=== PATIENT | female | born 2000 | race Caucasian/White ===

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

== ENCOUNTER 2021-05-25 22:57 | Outpatient (CLI) | payer OTHER ==
[~2021-05-25] VITALS: Ht 157.5 cm; Wt 57.2 kg
[2021-05-25 23:18] VITALS: BP 121/67
[2021-05-26 00:18] LABS: APPEARANCE, URINE CLEAR (CLEAR); BACTERIA, URINE AUTO NEGATIVE (NEGATIVE); BILIRUBIN, URINE AUTO NEGATIVE (NEGATIVE); BLOOD, URINE BLOOD NEGATIVE (NEGATIVE); COLOR, URINE YELLOW (YELLOW); GLUCOSE, URINE (UA) AUTO NEGATIVE (NEGATIVE); KETONE, URINE AUTO 1+ mg/dL (NEGATIVE); LEUKOCYTE ESTERASE, URINE AUTO NEGATIVE (NEGATIVE); MUCUS, URINE SMALL (NEGATIVE); NITRITE, URINE AUTO NEGATIVE (NEGATIVE); PROTEIN, URINE AUTO NEGATIVE (NEGATIVE); RBC, URINE AUTO 0 /HPF (0-3); SPECIFIC GRAVITY URINE AUTO 1.009 (1.002-1.035); SQUAMOUS EPITHELIAL CELL UR AU 0 /HPF (0-6); WBC, URINE AUTO 1 /HPF (0-3)
[2021-05-26] MEDS ORDERED: LACTATED RINGER'S 1000 ML IV ONE (00:45)
[2021-05-26] MEDS ORDERED: LR 1,000 ML IV SCH (00:45)
[2021-05-26] MEDS ORDERED: METHYLERGONOVINE MALEATE 0.2 MG/ML VIAL (J2210) IM PRN (00:45)
[2021-05-26 00:48] VITALS: BP 116/61
[2021-05-26] MEDS ORDERED: PRENTAB9 PO (00:59)
[2021-05-26 01:10] LABS: HEMATOCRIT 35.4 % (36.0-47.0); HEMOGLOBIN 11.2 g/dl (12.0-15.5); MEAN CORPUSCULAR HEMOGLOBIN 26.2 pg (27.0-33.0); MEAN CORPUSCULAR HGB CONC 31.6 g/dl (32.0-36.5); MEAN CORPUSCULAR VOLUME 82.9 fl (80.0-96.0); PLATELET COUNT, AUTOMATED 240 10^3/uL (150-450); RED BLOOD COUNT 4.27 10^6/uL (4.00-5.40); WHITE BLOOD COUNT 10.6 10^3/uL (4.0-10.0)
[2021-05-26] MEDS ORDERED: ceFAZolin SOD 2 GM in IV 1 EA IV ONE (02:00)
--- NOTE | 2021-05-26 02:02 | IPNPDOC ---
Text Note Date of Service Item Value Date Time Urine Color YELLOW 05/25/212349 Urine Appearance CLEAR 05/25/212349 Urine pH 7.0 UNITS 05/25/212349 Urine Specific [place] 1.009 05/25/212349 Urine Ketones (Auto) 1+ mg/dL H 05/25/212349 Urine Glucose (Auto)(UA) NEGATIVE mg/dL 05/25/212349 Urine Protein NEGATIVE mg/dL 05/25/212349 Urine Blood NEGATIVE 05/25/212349 Urine Nitrite NEGATIVE 05/25/212349 Urine Bilirubin NEGATIVE 05/25/212349 Urine Urobilinogen 2.0 mg/dL H 05/25/212349 Urine Leukocyte Esterase (Auto) NEGATIVE 05/25/212349 Urine WBC (Auto) 1 /HPF 05/25/212349 Urine RBC (Auto) 0 /HPF 05/25/212349 Urine Hyaline Casts (Auto) 0 /LPF 05/25/212349 Urine Bacteria (Auto) NEGATIVE 05/25/212349 Urine Squamous Epithelial Cells 0 /HPF 05/25/212349 Urine Mucus (Auto) SMALL 05/25/212349 The patient was seen on 05/26/21. NOTE 05/25/2021 20 yo LMP 09/22/2020 EDC 21 BY EARLY US 9.1 WEEKS SEEN IN TRIAGE HISTORY OF CONTRACTIONS Q 2-3 MINUTES NO VAGINAL BLEEDING NO DISCHARGE . PATIENT AT 35.0 WEEKS PAST HISTORY 02/25/2020 SOCIAL INDUCTION MALE .7LBS 14 OZ . RISK FACTORS SHORT INTERVAL PP DEPRESSION EXAMINATION APPEARS DISTRESSED WITH CONTRACTIONS CATAGORY 1 STRIP NO DECELERATIONS MODERATE VARIBILITY . Q2-3 MINUTES 40 SECONDS . CONSENTED VAGINAL EXAMINATION CERVIX POSTERIOR SOFT 2-3 CM BULGING MEMBRANES NO SHOW NO VAGINAL DISCHARGE PLAN OBSERVATION STATUS IV FLUIDS BOLUS ADMISSION BLOOD WORK GBS STATUS UNKNOWN ANTIBIOTIC PROPHYLAXIS PLANNED REASSESSMENT RE DILATATION IF PROGRESSED ADMIT IF NO CHANGE DISCHARGE WITH PRECAUTIONS . PATIENT EXPRESSED UNDERSTANDING OF PLAN OF CARE 30 MINUTE DISCUSSION . VS,Fishbone, I+O VS, Fishbone, I+O Item Value Date Time White Blood Count 10.6 10^3/uL H 05/26/21 0025 Red Blood Count 4.27 10^6/uL 05/26/21 0025 Hemoglobin 11.2 g/dl L 11/9/21 0025 Hematocrit 35.4 % L 05/26/2124 Mean Corpuscular Volume 82.9 fl 05/26/2124 Mean Corpuscular Hemoglobin 26.2 pg L 05/26/2124 Mean Corpuscular Hemoglobin Concent 31.6 g/dl L 05/26/2124 Red Cell Distribution Width 13.2 % 05/26/2124 Platelet Count 240 10^3/uL 05/26/2124 Laboratory Tests 05/26/21 00:25 Vital Signs Date Time Temp Pulse Resp B/P (MAP) Pulse Ox O2 Delivery O2 Flow Rate FiO2 05/25/21 23:18 98.8 90 18 121/67 (85) Pete Santana MD May 26, 2021 01:58
[2021-05-26 02:40] VITALS: BP 116/63
[2021-05-26 05:40] VITALS: BP 88/50
--- NOTE | 2021-05-26 06:51 | IPNPDOC ---
Text Note Date of Service Vital Signs Label Value Date Time Patient Temperature 98.2 degrees F 05/26/21 0540 Temperature Source Temporal 05/26/21 0540 Pulse 80 05/26/21 0540 Respiratory Rate 18 bpm 05/26/21 0540 Blood Pressure Assessment 88/50 (63) 05/26/21 0540 Source Automatic Cuff (NIBP) Blood Pressure Assessment 116/63 (80) 05/26/21 0240 Source Automatic Cuff (NIBP) Respiratory Rate 18 bpm 05/26/21 0240 Pulse 83 05/26/21 0240 Respiratory Rate 18 bpm 05/26/21 0048 Pulse 77 05/26/21 0048 Blood Pressure Assessment 116/61 (79) 05/26/218 Source Automatic Cuff (NIBP) Blood Pressure Assessment 121/67 (85) 05/25/218 Source Automatic Cuff (NIBP) Respiratory Rate 18 bpm 05/25/212317 Patient Temperature 98.8 degrees F 05/25/212317 Temperature Source Temporal 05/25/212317 Pulse 90 05/25/212317 Item Value Date Time Urine Color YELLOW 05/25/212349 Urine Appearance CLEAR 05/25/212349 Urine pH 7.0 UNITS 05/25/212349 Urine Specific [place] 1.009 05/25/212349 Urine Protein NEGATIVE mg/dL 05/25/212349 Urine Glucose (Auto)(UA) NEGATIVE mg/dL 05/25/212349 Urine Ketones (Auto) 1+ mg/dL H 05/25/212349 Urine Blood NEGATIVE 05/25/212349 Urine Nitrite NEGATIVE 05/25/212349 Urine Bilirubin NEGATIVE 05/25/212349 Urine Urobilinogen 2.0 mg/dL H 05/25/212349 Urine Leukocyte Esterase (Auto) NEGATIVE 05/25/212349 Urine WBC (Auto) 1 /HPF 05/25/212349 Urine RBC (Auto) 0 /HPF 05/25/212349 Urine Hyaline Casts (Auto) 0 /LPF 05/25/212349 Urine Bacteria (Auto) NEGATIVE 05/25/212349 Urine Squamous Epithelial Cells 0 /HPF 05/25/212349 Urine Mucus (Auto) SMALL 05/25/212349 Item Value Date Time White Blood Count 10.6 10^3/uL H 05/26/21 0025 Red Blood Count 4.27 10^6/uL 05/26/2124 Hemoglobin 11.2 g/dl L 05/26/2124 Hematocrit 35.4 % L 05/26/2124 Mean Corpuscular Volume 82.9 fl 05/26/2124 Mean Corpuscular Hemoglobin 26.2 pg L 05/26/2124 Mean Corpuscular Hemoglobin Concent 31.6 g/dl L 05/26/2124 Red Cell Distribution Width 13.2 % 05/26/2124 Platelet Count 240 10^3/uL 05/26/215 Nucleated Red Blood Cells % (auto) 0.0 % 05/26/2124 The patient was seen on 05/26/21. NOTE 05/26/2021 ASSESSMENT RE CONTRACTIONS 2-3 MINUTES MILD TO PALPATION. AFTER BOLUS AND REHYDRATION CONTRACTIONS SPACED OUT REEXAMINATION 6 HOURS NO CHANGE CERVIX , PATIENT PRECAUTIONS RE PELVIC REST INCREASE FLUIDS MAINTAIN APPOINTMENT WIT DRUM DISCHARGED UNDELIVERED VS,Corinne, I+O VS, Corinne, I+O Laboratory Tests 05/26/21 00:25 Vital Signs Date Time Temp Pulse Resp B/P (MAP) Pulse Ox O2 Delivery O2 Flow Rate FiO2 05/26/21 05:40 98.2 80 18 88/50 (63) Pete Santana MD May 26, 2021 06:48
[2021-05-26] MEDS ORDERED: ceFAZolin SOD 1 GM in D5W MINI-BAG PLUS 50 ML IV SCH (10:00)
== END 2021-05-26 06:22 | disposition home or self-care (01) ==
LOC: M LDO 22:57
PROVIDERS: ATTEND Obstetrics & Gynecology
DX: O60.03 Preterm labor without delivery, third trimester (principal); O99.343 Other mental disorders complicating pregnancy, third trimester; Z3A.35 35 weeks gestation of pregnancy
CPT/HCPCS: 59025; 81001; 85027; 86780; 86850; 86900; 86901; G0378; G0463; J0690

== ENCOUNTER 2021-06-18 10:31 | Inpatient (IN) | payer OTHER, SELFPAY ==
[2021-06-18] VITALS (26 sets, daily range): BP systolic 108–129; BP diastolic 56–83
[~2021-06-18] VITALS: Ht 157.5 cm; Wt 59.0 kg
[~2021-06-18 10:31] MED LIST: PRENTAB9 PO
[2021-06-18] MEDS ORDERED: LEXA5TAB13 PO (11:03)
[2021-06-18] MEDS ORDERED: LACTATED RINGER'S 1000 ML IV STA (11:33)
[2021-06-18] MEDS ORDERED: CARBOPROST TROMETHAMINE 250 MCG/ML AMP IM PRN (11:35)
[2021-06-18] MEDS ORDERED: METHYLERGONOVINE MALEATE 0.2 MG/ML VIAL (J2210) IM PRN (11:35)
[2021-06-18] MEDS ORDERED: LIDOCAINE 1% MDV 20ML VIAL INFIL PRN (11:35)
[2021-06-18] MEDS ORDERED: LR 1,000 ML IV SCH (11:35)
[2021-06-18] MEDS ORDERED: TRANEXAMIC ACID INJection 1,000 MG in NS 100 ML IV PRN (11:35)
[2021-06-18] MEDS ORDERED: OXYTOCIN DRIP 30 UNITS in IV 1 EA IV PRN ×4 (11:35)
--- OUTSIDE RECORDS SUMMARY | 2021-06-18 11:39 | CCD ---
Author Author [facility] Organization [facility] Address Unknown Phone Unavailable Support Name Relationship Address Phone UE Next Of Kin Unknown Unavailable [place] [address] - SELWYN VOGEL Next Of Kin [address] [place] [address] SEL[place]YN [place] E[address] [address] [place] [address] Unavailable Re-disclosure Warning The records that you are about to access may contain information from federally-assisted alcohol or drug abuse programs. If such information is present, then the following federally mandated warning applies: This information has been disclosed to you from records protected by federal confidentiality rules (42 CFR part 2). The federal rules prohibit you from making any further disclosure of this information unless further disclosure is expressly permitted by the written consent of the person to whom it pertains or as otherwise permitted by 42 CFR part 2. A general authorization for the release of medical or other information is NOT sufficient for this purpose. The Federal rules restrict any use of the information to criminally investigate or prosecute any alcohol or drug abuse patient.The records that you are about to access may contain highly sensitive health information, the redisclosure of which is protected by Article 27-F of the [facility] Public Health law. If you continue you may have access to information: Regarding HIV / AIDS; Provided by facilities licensed or operated by the [facility] Office of Mental Health; or Provided by the [facility] Office for People With Developmental Disabilities. If such information is present, then the following [facility] mandated warning applies: This information has been disclosed to you from confidential records which are protected by state law. State law prohibits you from making any further disclosure of this information without the specific written consent of the person to whom it pertains, or as otherwise permitted by law. Any unauthorized further disclosure in violation of state law may result in a fine or senior care sentence or both. A general authorization for the release of medical or other information is NOT sufficient authorization for further disc losure. Immunizations Vaccine Date Status Description Data Source(s) COVID-19 VACCINE Pfizer 09/26/2020 12:00:00 AM EST completed [facility] Vaccine Series Complete: NOThis Data was Submitted to [facility]™. Medications No Information Insurance Providers Payer name Policy type / Coverage type Policy ID Covered libertarian ID Covered libertarian's relationship to rebolledo Policy Rebolledo Plan Information [facility] [id number] SELF PAY ONLY [facility] [id number] Problems, Conditions, and Diagnoses No Information Surgeries/Procedures No Information Results No Information Social History No Information
[2021-06-18] MEDS ORDERED: FENTANYL 2MCG/ML ROPIVACAINE 0.2% IN 0.9% NACL 100ML IVBAG As Ordered ONE (12:09)
[2021-06-18 12:10] LABS: HEMATOCRIT 34.6 % (36.0-47.0); HEMOGLOBIN 10.9 g/dl (12.0-15.5); MEAN CORPUSCULAR HEMOGLOBIN 24.8 pg (27.0-33.0); MEAN CORPUSCULAR HGB CONC 31.5 g/dl (32.0-36.5); MEAN CORPUSCULAR VOLUME 78.6 fl (80.0-96.0); PLATELET COUNT, AUTOMATED 224 10^3/uL (150-450); WHITE BLOOD COUNT 16.6 10^3/uL (4.0-10.0)
[2021-06-18] MEDS ORDERED: EPIDURAL COMMENT XX SCH (12:40)
[2021-06-18] MEDS ORDERED: NALOXONE INJ 0.4MG/1ML VIAL (J2310 PER 1MG) IV PRN (12:40)
[2021-06-18] MEDS ORDERED: EPIDURAL/PCA KEYS XX PRN (12:40)
[2021-06-18] MEDS ORDERED: ePHEDrine SULFATE 25 MG/5 ML(5MG/ML) SYRINGE IV PRN (12:40)
[2021-06-18] MEDS ORDERED: ONDANSETRON 4MG/2ML VIAL IV PRN (12:40)
[2021-06-18] MEDS ORDERED: REFRIGERATOR IV KEYS XX PRN (12:40)
[2021-06-18] MEDS ORDERED: FENTANYL/ROPIVACAINE/NACL BAG 100 ML EPIDURAL SCH (12:40)
[2021-06-18] MEDS ORDERED: diphenhydrAMINE 50MG/ML VIAL (J1200) IV PRN (12:40)
--- NOTE | 2021-06-18 13:13 | HPEPDOC ---
Obstetrical History & Physical General Date of Admission Jun 18, 2021 at 11:34 History of Present Illness Chief Complaint: Patient is a 21yo at 38+3 wks gestation who presents to L&D triage for labor check. Patient presents: with spouse HPI: Reports contractions started this morning at 0400 and have progressively worsened in intensity and frequency. Pain now 10/10 when they occur. Denies any leaking of fluid, vaginal bleeding. Reporting good movement. Denies any headaches, nausea, vomiting, RUQ pain. Denies any dysuria, vaginal discharge, vaginal itching/burning. Dating Final EDC: Jun 29, 2021 Final EDC for Daily Update: Jun 29, 2021 Final EDC by: LMP LMP: Sep 22, 2020 EGA at Admission: 38.3 Antepartum Course Diagnos(e)s 1. Depression/Anxiety- Lexapro with referral 2. Closely spaced pregnancies Height (inches): 62 Pre- weight (lbs.): 104 Admission Weight (lbs.): 126 Change in Weight (lbs.): 22 Past Medical History Past Obstetrical History : Past Obstetrical History: Multigravida ( 40wks Feb 2020) ACCOUNTANT PROPERTY History: No pertinent history Past Medical History Medical History Depression/anxiety Surgical History: Denies/None Family History Family History father: [place] MGM: heart issues Social History Marital Status: Family situation: Spouse/partner home Psychosocial History: Anxiety, Depression * Smoker: non-smoker Alcohol: Denies Drugs: denies Imunizations Tdap status: current Allergies Coded Allergies: No Known Allergies (Unverified , 05/26/21) Medications Scheduled Escitalopram Oxalate (Lexapro) 5 Mg Tablet, 1 TAB PO DAILY No.137/Iron/Folic Acd ( Vitamin Tablet) 1 Each Tablet, 1 TAB PO DAILY Physical Examination Physical Examination Exam: General: Well-appearing, in no acute distress. Uncomfortable with contractions. PSYCH: Well groomed. Appropriate affect, normal mood. Conversed easily. Neuro: Oriented to time, place, and person. RESP: Lungs clear to auscultation bilaterally without wheezes, rales or rhonchi. Unlabored breathing. CV: Normal RRR, no murmur, c/w normal . No edema to bilateral upper and lower extremities. Negative calf tenderness. ABD: Gravid. Soft, non-tender. BS normal x4 quad. Uterus non-tender. MSK: Normal mvmt all extremities. Steady gait. Angy from a seated position without assistance. SKIN: Dry, intact. Genitalia: External Genitalia showed no abnormalities Obstetrical: Clinical Pelvimetry: Pelvis adequate FHR: 135 rate, moderate variability, accelerations present, no decelerations. Contractions 3-6min, palpating strong. VTX by Leopolds & exam EFW: 2850gm by Leoplds SVE: 6-7cm/100%/-2, anterior/soft @1130 Production Technologist present for exam: Ms. Kelvin RN Vital Signs/I&O Vital Signs Date Time Temp Pulse Resp B/P (MAP) Pulse Ox O2 Delivery O2 Flow Rate FiO2 06/18/21 10:52 98.2 90 18 124/69 (87) Laboratory Data 24H LABS Laboratory Tests 2 06/18/21 11:43: Serology Scanned Report Hepatitis B Testing 06/18/21 12:01: Nucleated Red Blood Cells % (auto) 0.0 CBC/BMP Laboratory Tests 06/18/21 12:01 Urine Culture: No Growth Pertinent Laboratoy Data Blood Type: A+ RBC Antibody Screen: Negative HIV: Negative Hepatitis B: Negative Rapid Plasma Reagin: Nonreactive Rubella: Immune Varicella: Immune Chlamydia/Gonorrhea: Negative Group B Streptococcus: Negative Glucose Tolerance Test: 99 Anatomy Ultrasound Ultrasound Date: Feb 06, 2021 Placenta Location: Anterior Normal Anatomy: Yes Estimated Weight (grams): 328 Assessment/Plan Assessment Ms. Marysol Patterson is a 21 yo at 38+3 wks gestation admitted to L&D for labor after presenting to triage with contractions. A positive/GBS negative/RI/ VSS Benign physical exam FHR Cat 1 tracing VTX by Leheatherds & exam EFW: 2805gm by Leopolds SVE: 6-7cm/100%/-2, active labor. Plan Admit, labs, IV, consent completed Address pain needs as the arise, patient plans epidural for pain management in labor Continuous EFM LR for maintenance fluids Expectant management at this time. Anticipate Consult physician service as needed Labor and Delivery Counseling Reviewed with patient the following with the patient in regards to vaginal delivery (Deliver infant through the vaginal canal): The purpose of the procedure is to deliver a baby. There may be maternal risks involved with vaginal delivery to include but not limited to: -Use of the medications to induce or augment labor with the risks of uterine rupture, infection, heart rate abnormalities, hemorrhage, and/or need for emergency delivery. -Artificial rupture of the amniotic sac with the risk of cord prolapse -Internal monitors with the associate risks of infection or fever -Infection, which is fever during the labor process -IV pain management, anesthesia as indicated and associated risks with those medications -Vaginal lacerations and repair, episiotomy and repair when needed -Injury to the baby or mother at the time of delivery, -Maternal organ damage, maternal or infant -Prolonged hospitalized -Possible painful intercourse, chronic pelvic pain In addition to these maternal risks, there may be other possible risks involved in this procedure including, but not limited to: bleeding with the possible need for blood transfusion. Risks of blood transfusion can include but are not limited to: possible transfusion reaction, virus transmission. Patient consents to blood transfusion if necessary. The likelihood of a successful outcome for this procedure is: Good Reviewed with patient the generally recognized and accepted practical alternatives to this procedure and the accompanying risks are: -Possible emergent Section with its risk of damage to internal organs and necessary repairs, laceration to the baby and necessary repairs -Possible operative vaginal delivery to include forceps or vacuum assist, resulting in: maternal tissue damage, maternal urinary or bowel incontinence, baby bruising, hematoma, scalp swelling, scalp laceration, skull fracture, facial paralysis and its repair Reviewed with patient the practice of medicine is not an exact science and that no guarantees can be made to the patient concerning the results of this procedure, nor guarantees to the effect this procedure will have on underlying medical issues. Reviewed with patient that during the course of labor, it may be necessary or appropriate to perform additional procedure(s) which were unforeseen or not known to be needed at the time of admission. Ms. Lynda Patterson appears to understand these risks and elects to proceed with admission for labor today. KAUSHIK CONN CNM Jun 18, 2021 12:55
--- NOTE | 2021-06-18 14:48 | IPNPDOC ---
Obstetrical Progress Note Date of Service Jun 18, 2021 (@1330) Subjective Now more comfortable, epidural just placed. spouse at bedside for support. Objective Vital Signs Date Time Temp Pulse Resp B/P (MAP) Pulse Ox O2 Delivery O2 Flow Rate FiO2 06/18/21 13:27 91 119/77 (91) 06/18/21 10:52 98.2 18 Assessment Heart Rate (FHR): 125 Variability: Moderate Accelerations: Positive Decelerations: None Heart Rate Tracing: Category I Tocometer Contractions: Yes Frequency: every 2-5 min. Assessment and Plan Additional Comments 21 yo at 38+3 wks gestation admitted today for Labor A positive/GBS negative/RI/ VSS FHR Cat 1 tracing Comfortable with PHIL SVE @1316: 8cm/100%/-1, making progressive cervical change. Expectant management at this time. Anticipate Consult physician service as needed KASUHIK CONN CNM Jun 18, 2021 14:48
[2021-06-18] MEDS ORDERED: METHYLERGONOVINE MALEATE 0.2 MG TAB PO PRN (16:35)
[2021-06-18] MEDS ORDERED: DIBUCAINE 1% OINTMENT 30GM TOP PRN (16:35)
[2021-06-18] MEDS ORDERED: ACETAMINOPHEN TAB 650MG DOSE (2X325MG) PO PRN (16:35)
[2021-06-18] MEDS ORDERED: IBUPROFEN 600MG TAB PO PRN (16:35)
[2021-06-18] MEDS ORDERED: DOCUSATE SODIUM 100MG CAPSULE PO PRN (16:35)
--- NOTE | 2021-06-18 16:38 | DNPDOC ---
[facility] Delivery Note Delivery Note Date of Delivery: 18 Jun 2021 @ 1607 hours Pre-Procedure Diagnosis: 1. 21 year old G 2 P 1 at 38+3 weeks gestation 2. Rh positive 3. Depression/Anxiety- Lexapro with referral 4. Closely spaced pregnancies Post-Procedure Diagnosis: 1. Normal spontaneous vaginal delivery, term up to 40 weeks gestation 2. First degree laceration 3. Nuchal and body cord complicating delivery, without compression 4. Meconium Fluid Procedure: Spontaneous vaginal delivery Delivery Provider: MAJ Zunilda Pacheco CNM Anesthesia: Epidural Estimated Blood Loss: 150 ml Findings: Delivered viable female weighing 3010gm (6#10oz), Score 8/9. Complications: None Delivery Summary: Patient is a 21 year old 2 now para 2-0-0-2 who was admitted to labor and delivery for labor. Went to assess patient and found to have bag of meconium fluid outside vagina and found to be C/C/+3. Bag ruptured. Reassuring FHR tracing throughout pushing. Good directed pushing efforts delivered infant OA, with head restituting to ROT. Tight nuchal cord through which delivered, also noted body cord. Left anterior shoulder, posterior shoulder, and corpus delivered easily with maternal pushing efforts. unwrapped from cord and to maternal abdomen for drying, stimulation and assessment by nursing staff. Cord clamped x2 and cut by FOB following cessation of pulse. Placenta delivered with gentle cord traction, in Elaine mechanism, appears complete and intact with 3VC. Fundus massaged to firm and trailing membranes removed with gauze curettage. Inspection revealed first degree laceration. This was repaired in the usual fashion using 3-0 vicryl with good approximation and hemostasis under exiting epidural anesthesia. Patient tolerated well. Sponge, needle, instrument count correct following delivery. Vaginal sweep confirmed nothing foreign remaining in vagina. Patient and stable and bonding in skin to skin when I left. Desires to breast feed with formula supplementation and use Paraguard for control (desires non-hormonal method). I delivered the , completed the repair, and completed the documentation personally. -CHOLO Corrales ADINA M. CNM Jun 18, 2021 16:38
[2021-06-19] MEDS: IBUPROFEN 800 MG TAB PO PRN ×2 (00:30→08:38)
--- NOTE | 2021-06-19 05:59 | OBDS ---
[facility] Obstetrical Discharge Sum. Obstetrical Discharge Summary Senior Peoplesoft Developer/Provider: CHRISTY VIEYRA DO Date: Jun 19, 2021 Time: 05:55 : 2 Term: 2 Pre-term: 0 Abortions: 0 Livin VDRL: Non-Reactive Rh: Positive Rubella: Immune Labor uncomplicated Delivery normal spontaneous vaginal delivery Infant Sex: Female Infant Weight: pounds (6), ounces (10), grams (3010) Anesthesia: Regional Anesthesia A/P, Post Course List any complications Admission diagnosis: labor at term Discharge diagnosis: status post normal spontaneous vaginal delivery Condition at Discharge: goog Discharge Instructions: home Activity: vaginal rest, otherwise as tolerated Diet: resume pre-hospital diet Medications: at [place] Follow-up: 2 weeks and 6 weeks at [facility] Other: Day of Discharge Exam a&o x3 nonlabored breathing abdomen soft, nontender, nondistended uterus firm 2cm below umbilicus negative calf tenderness bilaterally normal mood and affect apparent appropriate bonding CHRISTY VIEYRA DO Jun 19, 2021 05:59
[2021-06-19] MEDS ORDERED: ACET1TAB55 PO (06:01)
[2021-06-19] MEDS ORDERED: COLA100C5 PO (06:01)
[2021-06-19] MEDS ORDERED: IBUP-1022 PO (06:01)
[2021-06-19 06:29] VITALS: BP 129/68
[2021-06-19] MEDS: ACETAMINOPHEN 500 MG TAB PO PRN ×2 (06:57→13:10)
[2021-06-19] MEDS: PRENATAL VITAMINS CHEWABLE TABLET PO SCH (08:38)
[2021-06-19] MEDS ORDERED: INFLUENZA QUADRIVALENT PF VACCINE 0.5ML SYRINGE IM ONE (09:00)
[2021-06-19 18:00] VITALS: BP 120/70
[2021-06-19] MEDS ORDERED: ESCITALOPRAM OXALATE 10 MG TAB (LEXAPRO) PO SCH (21:00)
[2021-06-20 06:00] VITALS: BP 128/81
[2021-06-20] MEDS: ACETAMINOPHEN 500 MG TAB PO PRN ×2 (06:19→11:56)
[2021-06-20] MEDS: PRENATAL VITAMINS CHEWABLE TABLET PO SCH (09:00)
--- NOTE | 2021-06-20 10:52 | IPNPDOC ---
Progress Note Date of Service: Jun 20, 2021 Day#: 2 Progress Note Ms. Lynda Patterson is a 21 who had an on 06/18/21 of infant female at 38+3wks gestation. She had a 1st degree laceration repaired after delivery. S: States she is doing well. Reports pain well controlled. She is ambulating well, tolerating a regular diet, urinating without difficulty, reports normal bowel activities and has no breast or leg pain. Only formula feeding at this time. Doesn't believe she will try to breastfeed. Lochia is diminishing. Ambulating well, reports some dizziness, especially when cramping pain returns. Hx of depression, on Lexparo for a few weeks prior to delivery. Thinks her moods are worsening now that she is . O: VS: Vital Signs Label Value Date Time Patient Temperature 98.1 degrees F 06/20/21 0600 Temperature Source Temporal 06/20/21 0600 Pulse 83 06/20/21 0600 Respiratory Rate 18 bpm 06/20/21 0600 Blood Pressure Assessment 128/81 (97) 06/20/21 0600 Source Automatic Cuff (NIBP) Bedside Pulse Oximetry 100 % 06/20/21 0600 General: Alert. Well-appearing, in no acute distress. Tired with appropriate responses. PSYCH: Flat affect. Conversed easily. Neuro: Oriented to time, place, and person. RESP: Lungs clear to auscultation bilaterally without wheezes, rales or rhonchi. Unlabored breathing. CV: Normal RRR, no murmur, c/w normal . No edema to bilateral upper and lower extremities. Negative calf tenderness. ABD: Soft, non-tender. BS normal x4 quad. Fundus: Firm U-2, Fundus non-tender. MSK: legs without calf tenderness or edema bilaterally SKIN: Dry, intact. A/P 21yo day 2 s/p at 38+3 wks gestation A positive/GBS negative/RI/ Normal progression Formula feeding VSS Plans paraguard for control after discharge. Discussed increasing lexapro to 10mg BID. To follow up in [facility] in 2 weeks for mood check. Discharge today when ready, to follow up in [facility] clinic also at 6wks for PP visit. Discharge teaching completed with patient, see discharge summary. Discharge medications previously picked up from pharmacy. No new discharge medications ordered. VS, I&O, 24H, Fishbone Vital Signs/I&O Vital Signs Date Time Temp Pulse Resp B/P (MAP) Pulse Ox O2 Delivery O2 Flow Rate FiO2 06/20/21 06:00 98.1 83 18 128/81 (97) 100 Room Air KAUSHIK CONN CNM Jun 20, 2021 10:52
--- NOTE | 2021-06-20 10:56 | DS.PDOC ---
Discharge Summary General Date of Admission Jun 18, 2021 at 11:34 Date of Discharge Jun 20, 2021 Discharge Summary Date of Admission: 06/18/21 Admission Diagnosis: Labor at Full Term Delivery Date: 06/18/21 Discharge Diagnosis: -Normal spontaneous vaginal delivery, term up to 40 weeks gestation -First degree laceration -Nuchal and body cord complicating delivery, without compression -Meconium Fluid Procedures: External Monitoring Epidural AROM Vaginal Delivery Repair of Laceration Condition on Discharge: Stable Discharged to: Home Hospital Course: Ms. Lynda Patterson is a 21 year old G 2 now P 2 who delivered a viable female at 38+3 weeks gestation via spontaneous vaginal delivery after arriving to unit in spontaneous labor. A first degree laceration was repaired following delivery. Patient has had an uncomplicated course. She has remained afebrile and normotensive with diminishing lochia throughout her stay. She is ambulating well, tolerating a regular diet, urinating without difficulty, reports normal bowel activities and has no breast or leg pain. She is stable and ready for discharge. Day of discharge physical exam documented in progress note. Infant feeding at discharge is formula. Planned control is Paraguard. To follow up in the [facility] in 2 weeks for mood check. Discharge management time Spent: <30 minutes I saw and evaluated the patient, and completed the documentation personally. -MAJ Zunilda Conn CNM Vital Signs/I&Os Vital Signs Date Time Temp Pulse Resp B/P (MAP) Pulse Ox O2 Delivery O2 Flow Rate FiO2 06/20/21 06:00 98.1 83 18 128/81 (97) 100 Room Air Discharge Medications Scheduled Escitalopram Oxalate (Lexapro) 5 Mg Tablet, 1 TAB PO DAILY, (Reported) No.137/Iron/Folic Acd ( Vitamin Tablet) 1 Each Tablet, 1 TAB PO DAILY, (Reported) Scheduled PRN Acetaminophen (Acetaminophen) 325 Mg Tablet, 650 MG PO Q4HP PRN for PAIN LEVEL 1-5 Docusate Sodium (Colace) 100 Mg Capsule, 100 MG PO QHSP PRN for CONSTIPATION Ibuprofen (Ibuprofen) 600 Mg Tablet, 600 MG PO Q6HP PRN for PAIN LEVEL 1-5 Allergies Coded Allergies: No Known Allergies (Unverified , 05/26/21) ZUNILDA CONN CNM Jun 20, 2021 10:56
[2021-06-20 11:44] VITALS: BP 119/59
== END 2021-06-20 12:07 | disposition home or self-care (01) | DRG 807 ==
LOC: M LDO 10:31 → M LDI 11:34 → M OBS 18:22
PROVIDERS: ADMIT Advanced Practice Midwife; ATTEND Advanced Practice Midwife
PROC: 10E0XZZ Delivery of Products of Conception, External Approach (ICD-10-PCS; principal; 2021-06-18)
PROC: 10907ZC Drainage of Amniotic Fluid, Therapeutic from Products of Conception, Via Natural or Artificial Opening (ICD-10-PCS; 2021-06-18)
DX: O99.344 Other mental disorders complicating childbirth (principal); Z37.0 Single live birth; Z3A.38 38 weeks gestation of pregnancy; F32.9 Major depressive disorder, single episode, unspecified; O70.0 First degree perineal laceration during delivery; O69.81X0 Labor and delivery complicated by cord around neck, without compression, not applicable or unspecified; O69.82X0 Labor and delivery complicated by other cord entanglement, without compression, not applicable or unspecified; O73.1 Retained portions of placenta and membranes, without hemorrhage

== ENCOUNTER 2022-09-15 20:11 | Emergency (ER) | payer OTHER ==
[~2022-09-15] VITALS: Ht 157.5 cm; Wt 48.6 kg
[~2022-09-15 20:11] MED LIST changes: +ACET1TAB55 PO; +COLA100C5 PO; +IBUP-1022 PO; +LEXA5TAB13 PO
[2022-09-16 01:21] VITALS: BP 124/67
== END 2022-09-16 01:22 | disposition home or self-care (01) ==
LOC: M ED 20:11
DX: O9A.211 Injury, poisoning and certain other consequences of external causes complicating pregnancy, first trimester (principal); S93.602A Unspecified sprain of left foot, initial encounter; W01.0XXA Fall on same level from slipping, tripping and stumbling without subsequent striking against object, initial encounter; Y99.0 Civilian activity done for income or pay; Z79.899 Other long term (current) drug therapy

== ENCOUNTER 2022-11-07 22:26 | Emergency (ER) | payer OTHER ==
[2022-11-07] MEDS ORDERED: ONDA4TAB6 (22:34)
[2022-11-07] MEDS ORDERED: CLIN-250 (22:34)
[2022-11-07 23:16] LABS: BASO % 0.3 % (0.0-1.0); EOS % 0.1 % (0.0-3.0); HEMATOCRIT 42.2 % (36.0-47.0); HEMOGLOBIN 13.3 g/dl (12.0-15.5); LYMPH % 8.7 % (24.0-44.0); MEAN CORPUSCULAR HEMOGLOBIN 26.4 pg (27.0-33.0); MEAN CORPUSCULAR HGB CONC 31.5 g/dl (32.0-36.5); MEAN CORPUSCULAR VOLUME 83.7 fl (80.0-96.0); MONO # 0.4 10^3/uL (0.0-0.8); MONO % 3.8 % (2.0-8.0); NEUTROPHILS # 9.8 10^3/uL (1.5-8.5); NEUTROPHILS % 86.7 % (36.0-66.0); PLATELET COUNT, AUTOMATED 261 10^3/uL (150-450); RED BLOOD COUNT 5.04 10^6/uL (4.00-5.40); WHITE BLOOD COUNT 11.3 10^3/uL (4.0-10.0)
[2022-11-07 23:44] LABS: LIPASE 29 U/L (12-53)
[2022-11-07 23:46] LABS: ALBUMIN 3.3 G/DL (3.2-5.2); ALKALINE PHOSPHATASE 74 U/L (46-116); ALT/SGPT 12 U/L (7.0-40); AST/SGOT 20 U/L (<34); BILIRUBIN,DIRECT < 0.1 MG/DL (<0.4); BILIRUBIN,TOTAL 0.4 MG/DL (0.3-1.2); BLOOD UREA NITROGEN 12 MG/DL (9-23); CALCIUM LEVEL 8.7 MG/DL (8.5-10.1); CARBON DIOXIDE LEVEL 22 MMOL/L (20-31); CHLORIDE LEVEL 103 MMOL/L (98-107); CREATININE FOR GFR 0.63 MG/DL (0.55-1.30); GLOMERULAR FILTRATION RATE > 60.0 (>60); GLUCOSE, FASTING 88 MG/DL (60-100); POTASSIUM SERUM 4.3 MMOL/L (3.5-5.1); SODIUM LEVEL 135 MMOL/L (136-145); TOTAL PROTEIN 7.6 G/DL (5.7-8.2)
[2022-11-08] MEDS ORDERED: NS 1,000 ML IV ONE ×2 (02:35→05:00)
[2022-11-08] MEDS ORDERED: PROMETHAZINE 25MG/ML 1ML VIAL IV ONE (02:35)
[2022-11-08] MEDS ORDERED: REGL5TAB2 PO (05:23)
[2022-11-08 05:30] VITALS: BP 93/50
== END 2022-11-08 06:42 | disposition home or self-care (01) ==
LOC: M ED 22:26
DX: O21.1 Hyperemesis gravidarum with metabolic disturbance (principal); Z87.42 Personal history of other diseases of the female genital tract; Z3A.18 18 weeks gestation of pregnancy; Z79.83 Long term (current) use of bisphosphonates; Z79.899 Other long term (current) drug therapy
CPT/HCPCS: 76815; 80048; 80076; 81001; 83690; 85025; 87086; 87486; 87581; 87633; 87798; 87880; 96374; 99284; J2550

== ENCOUNTER 2023-03-01 18:02 | Emergency (ER) | payer OTHER ==
[~2023-03-01] VITALS: Ht 157.5 cm; Wt 58.1 kg
[~2023-03-01 18:02] MED LIST changes: +CLIN-250; +ONDA4TAB6; +REGL5TAB2 PO
[2023-03-01] MEDS ORDERED: TUMS500C PO (18:17)
[2023-03-01] MEDS ORDERED: ACETAMINOPHEN TAB 650MG DOSE (2X325MG) PO ONE (22:20)
[2023-03-01 22:48] LABS: BASO % 0.2 % (0.0-1.0); EOS # 0.1 10^3/uL (0.0-0.5); EOS % 0.5 % (0.0-3.0); HEMATOCRIT 32.4 % (36.0-47.0); HEMOGLOBIN 9.9 g/dl (12.0-15.5); LYMPH # 2.4 10^3/uL (1.5-5.0); LYMPH % 21.4 % (24.0-44.0); MEAN CORPUSCULAR HEMOGLOBIN 24.5 pg (27.0-33.0); MEAN CORPUSCULAR HGB CONC 30.6 g/dl (32.0-36.5); MEAN CORPUSCULAR VOLUME 80.2 fl (80.0-96.0); MONO # 0.7 10^3/uL (0.0-0.8); MONO % 6.6 % (2.0-8.0); NEUTROPHILS # 7.9 10^3/uL (1.5-8.5); NEUTROPHILS % 70.5 % (36.0-66.0); PLATELET COUNT, AUTOMATED 258 10^3/uL (150-450); RED BLOOD COUNT 4.04 10^6/uL (4.00-5.40); WHITE BLOOD COUNT 11.2 10^3/uL (4.0-10.0)
[2023-03-01] MEDS ORDERED: CLEO300C2 PO (23:33)
[2023-03-01 23:56] VITALS: BP 123/64; TEMP 97.1; O2SAT 97
[2023-03-02] MEDS ORDERED: CLINDAMYCIN 150MG CAPSULE PO ONE (00:05)
== END 2023-03-02 00:09 | disposition home or self-care (01) ==
LOC: M ED 18:02
DX: O26.893 Other specified pregnancy related conditions, third trimester (principal); K04.7 Periapical abscess without sinus; Z3A.34 34 weeks gestation of pregnancy; Z79.83 Long term (current) use of bisphosphonates; Z79.899 Other long term (current) drug therapy